=== PATIENT | female | born 1995 | race Caucasian/White ===

== ENCOUNTER → 2022-01-13 | Outpatient (CLI) | payer OTHER ==
--- NOTE | 2022-01-13 10:52 | XR ---
Foot Limited HISTORY: Dog bite, swelling 2 views the left foot Soft tissue swelling is noted over the dorsum of the foot. Bone mineralization, joint spaces and alig nment are maintained. No periostitis to suggest osteomyelitis. Degenerative change present at the fir st metatarsophalangeal joint. No fracture or dislocation. No radiopaque foreign body. IMPRESSION: Correlate for cellulitis, abscess
== END | disposition home or self-care (01) ==
LOC: RADXRYALE 10:19
PROVIDERS: ATTEND Physician Assistant
DX: S91.352A Open bite, left foot, initial encounter (principal)

== ENCOUNTER → 2022-02-02 | Outpatient (CLI) | payer OTHER ==
--- NOTE | 2022-02-02 10:39 | XR ---
EXAMINATION TYPE: XR foot complete LT DATE OF EXAM: 02/02/2022 COMPARISON: NONE HISTORY: Pain TECHNIQUE: Three views are submitted. FINDINGS: The osseous structures are intact. There is no acute fracture or dislocation. Severe arthropathy f irst MTP. Soft tissue edema overlying the dorsum of the foot.. IMPRESSION: 1. No acute fracture or dislocation. If symptoms persist, follow-up exam in 7 to 10 days could be ob tained. 2. Soft tissue edema overlying the dorsum of foot correlate for posttrauma edema or cellulitis. 3. Severe arthropathy first MTP joint
== END | disposition home or self-care (01) ==
LOC: RADXRYALE 10:03
PROVIDERS: ATTEND Physician Assistant
DX: W54.0XXD Bitten by dog, subsequent encounter (principal); M79.672 Pain in left foot